=== PATIENT | male | born 1945 | race Two or more races ===

== ENCOUNTER → 2017-09-13 | Emergency (ER) | payer OTHER ==
[~2017-09-13] MED LIST: AVELOX ABC PAC400 MG PO; BENADRYL50 MG PO; CARDURA PO; CLEOCIN HCL300 MG PO; CORTEF20 MG; DICLOFENAC SODI50 MG PO; DOXYCYCLINE HY100 MG PO; DULERA 100 MCG/13 GM; HIBICLENS118 ML TOP; MUPIROCIN15 GM TOP; MUPIROCIN22 GM TOP; RELAFEN500 MG PO; ZYRTEC10 MG
== END | disposition left against medical advice (07) ==
LOC: ER 14:10
DX: Z53.20 Procedure and treatment not carried out because of patient's decision for unspecified reasons (principal)

== ENCOUNTER 2018-04-24 10:50 | Emergency (ER) | payer OTHER ==
[~2018-04-24] VITALS: Ht 180.3 cm; Wt 73.5 kg
[2018-04-24] MEDS ORDERED: AVAPRO75 MG PO (11:07)
== END 2018-04-24 17:53 | disposition home or self-care (01) ==
LOC: ER 10:50
DX: J22 Unspecified acute lower respiratory infection (principal)

== ENCOUNTER 2018-09-06 07:29 | Emergency (ER) | payer OTHER ==
[~2018-09-06] VITALS: Ht 177.8 cm; Wt 72.6 kg
[~2018-09-06 07:29] MED LIST changes: +AVAPRO75 MG PO
[2018-09-06] MEDS ORDERED: SINGULAIR10 MG (07:45)
== END 2018-09-06 10:40 | disposition home or self-care (01) ==
LOC: ER 07:29
DX: M79.662 Pain in left lower leg (principal)

== ENCOUNTER 2018-10-27 10:38 | Emergency (ER) | payer OTHER ==
[~2018-10-27] VITALS: Ht 180.3 cm; Wt 73.5 kg
[~2018-10-27 10:38] MED LIST changes: +SINGULAIR10 MG
== END 2018-10-27 12:44 | disposition home or self-care (01) ==
LOC: ER 10:38
DX: L23.6 Allergic contact dermatitis due to food in contact with the skin (principal); L30.8 Other specified dermatitis

== ENCOUNTER 2018-12-11 05:15 | Emergency (ER) | payer OTHER ==
[~2018-12-11] VITALS: Ht 180.3 cm; Wt 77.1 kg
[2018-12-11] MEDS ORDERED: TOBRADEX EYE DR10 ML (05:31)
[2018-12-11] MEDS ORDERED: REFRESH OPTIVE10 ML (05:32)
[2018-12-11] MEDS ORDERED: MEDROL8 MG PO (07:42)
[2018-12-11] MEDS ORDERED: BENADRYL25 MG PO (07:42)
[2018-12-11] MEDS ORDERED: PEPCID40 MG PO (07:42)
== END 2018-12-11 07:56 | disposition home or self-care (01) ==
LOC: ER 05:15
DX: L27.0 Generalized skin eruption due to drugs and medicaments taken internally (principal); T49.5X5A Adverse effect of ophthalmological drugs and preparations, initial encounter

== ENCOUNTER 2021-08-28 03:32 | Emergency (ER) | payer OTHER ==
[~2021-08-28] VITALS: Ht 180.3 cm; Wt 73.9 kg
[~2021-08-28 03:32] MED LIST changes: +BENADRYL25 MG PO; +MEDROL8 MG PO; +PEPCID40 MG PO; +REFRESH OPTIVE10 ML; +TOBRADEX EYE DR10 ML
[2021-08-28] MEDS ORDERED: MONTELUKAST SODI4 M1 PO (03:45)
[2021-08-28] MEDS ORDERED: FLOVENT DISKUS50 MCG IH (03:46)
[2021-08-28] MEDS ORDERED: CARDEZARTAN PO (03:46)
[2021-08-28] MEDS ORDERED: DOXAZOSIN MESYLA2 MG PO (03:46)
[2021-08-28] MEDS ORDERED: MEDROL4 MG PO (05:19)
== END 2021-08-28 05:32 ==
LOC: ER 03:32
DX: T78.40XA Allergy, unspecified, initial encounter (principal); X58.XXXA Exposure to other specified factors, initial encounter; I10 Essential (primary) hypertension; Z88.8 Allergy status to other drugs, medicaments and biological substances; Z88.0 Allergy status to penicillin; Z91.013 Allergy to seafood

== ENCOUNTER 2021-10-30 07:43 | Emergency (ER) | payer OTHER ==
[~2021-10-30] VITALS: Ht 180.3 cm; Wt 76.7 kg
[~2021-10-30 07:43] MED LIST changes: +CARDEZARTAN PO; +DOXAZOSIN MESYLA2 MG PO; +FLOVENT DISKUS50 MCG IH; +MEDROL4 MG PO; +MONTELUKAST SODI4 M1 PO
== END 2021-10-30 08:58 | disposition home or self-care (01) ==
LOC: ER 07:43
DX: H10.211 Acute toxic conjunctivitis, right eye (principal); Z88.0 Allergy status to penicillin; Z91.013 Allergy to seafood; T54.91XA Toxic effect of unspecified corrosive substance, accidental (unintentional), initial encounter; Y92.9 Unspecified place or not applicable

== ENCOUNTER 2022-04-04 10:50 | Emergency (ER) | payer OTHER ==
[~2022-04-04] VITALS: Ht 180.3 cm; Wt 76.7 kg
[2022-04-04] MEDS ORDERED: PROAIR RESPICL90 MCG IH (11:06)
[2022-04-04] MEDS ORDERED: MONTELUKAST SODI4 M1 PO (11:07)
[2022-04-04] MEDS ORDERED: FLOVENT DISKUS50 MCG IH (11:07)
[2022-04-04] MEDS ORDERED: DOXAZOSIN MESYLA2 MG PO (11:07)
[2022-04-04] MEDS ORDERED: ATACAND4 MG PO (11:07)
== END 2022-04-04 15:23 | disposition home or self-care (01) ==
LOC: ER 10:50
DX: B34.9 Viral infection, unspecified (principal); J45.909 Unspecified asthma, uncomplicated; I10 Essential (primary) hypertension; Z88.0 Allergy status to penicillin; Z91.013 Allergy to seafood; Z88.8 Allergy status to other drugs, medicaments and biological substances; Z20.822 Contact with and (suspected) exposure to COVID-19

== ENCOUNTER 2022-05-13 13:46 | Emergency (ER) | payer OTHER ==
[~2022-05-13] VITALS: Ht 180.3 cm; Wt 76.7 kg
[~2022-05-13 13:46] MED LIST changes: +ATACAND4 MG PO; +PROAIR RESPICL90 MCG IH
== END 2022-05-13 18:12 | disposition home or self-care (01) ==
LOC: ER 13:46
DX: T14.8XXS Other injury of unspecified body region, sequela (principal); Z88.0 Allergy status to penicillin; Z91.013 Allergy to seafood